=== PATIENT | male | born 1960 | race African-American/Black ===

== ENCOUNTER 2018-01-13 10:36 | Inpatient (IN) | payer MEDICARE, MEDICAID ==
[~2018-01-13] VITALS: Ht 172.7 cm; Wt 58.4 kg
[2018-01-13] MEDS ORDERED: OMEPRAZOLE40 MG PO (11:05)
[2018-01-13] MEDS ORDERED: ZOCOR40 MG PO (11:06)
[2018-01-13] MEDS ORDERED: PLAVIX75 MG PO (11:06)
[2018-01-13] MEDS ORDERED: BENAZEPRIL-HCTZ1 TA4 PO (11:07)
[2018-01-13] MEDS ORDERED: ASPIRIN EC81 M1 PO (11:07)
[2018-01-13] MEDS ORDERED: K-TAB10 MEQ PO (11:07)
[2018-01-13 11:22] VITALS: BP 83/55; BMI 19.0
[2018-01-13 12:51] LABS: BASOPHILS 0.4 % (0-2); HEMATOCRIT 31.1 % (42.0-54.0); HEMOGLOBIN 11.3 g/dL (13.5-17.5); IMMATURE GRANULOCYTES 0.2 % (0-5); LYMPHOCYTES 16.6 % (15-50); MCH 30.9 pg (26.0-34.0); MCHC 36.3 g/dL (31.0-37.0); MEAN PLATELET VOLUME 9.5 fL (7.4-10.4); NEUTROPHILS 70.8 % (40-80); PLATELET COUNT 376 10x3/uL (130-400); RBC 3.66 10x6/uL (4.20-6.10)
[2018-01-13 13:32] LABS: ALBUMIN 3.8 g/dL (3.4-5.0); ANION GAP 25.6 mmol/L (8-16); BILIRUBIN - TOTAL 0.41 mg/dL (0.2-1.3); CALCIUM 8.8 mg/dL (8.5-10.1); CARBON DIOXIDE 15.7 mmol/L (21.0-32.0); CREATININE - SERUM 11.9 mg/dL (0.6-1.3); POTASSIUM - SERUM 5.3 mmol/L (3.5-5.1); PROTEIN - SERUM 7.6 g/dL (6.4-8.2)
[2018-01-13 16:04] VITALS: BP 114/69
[2018-01-13 16:49] LABS: APPEARANCE CLEAR (CLEAR); BILIRUBIN NEGATIVE (NEGATIVE); COLOR YELLOW (YELLOW); GLUCOSE NEGATIVE (NEGATIVE); KETONE NEGATIVE (NEGATIVE); NITRITE NEGATIVE (NEGATIVE); PROTEIN NEGATIVE (NEGATIVE); UROBILINOGEN NORMAL (NORMAL)
[2018-01-13 20:44] VITALS: BP 98/67
[2018-01-14 01:11] VITALS: BP 102/65
[2018-01-14 04:57] LABS: BASOPHILS 0.6 % (0-2); EOSINOPHILS 3.7 % (0-7); HEMATOCRIT 25.1 % (42.0-54.0); IMMATURE GRANULOCYTES 0.3 % (0-5); LYMPHOCYTES 27.3 % (15-50); MCH 29.8 pg (26.0-34.0); MCHC 35.9 g/dL (31.0-37.0); MCV 83.1 fL (80.0-100.0); MEAN PLATELET VOLUME 9.2 fL (7.4-10.4); NEUTROPHILS 51.1 % (40-80); PLATELET COUNT 354 10x3/uL (130-400); RBC 3.02 10x6/uL (4.20-6.10); RDW 13.9 % (11.5-14.5); WBC 7.3 10x3/uL (4.8-10.8)
[2018-01-14 05:08] LABS: ALBUMIN 2.9 g/dL (3.4-5.0); BILIRUBIN - TOTAL 0.33 mg/dL (0.2-1.3); CALCIUM 8.4 mg/dL (8.5-10.1); PROTEIN - SERUM 6.6 g/dL (6.4-8.2)
[2018-01-14 05:12] LABS: ANION GAP 14.5 mmol/L (8-16); CARBON DIOXIDE 26.5 mmol/L (21.0-32.0)
[2018-01-14 05:46] VITALS: BP 95/59
[2018-01-14 08:26] VITALS: BP 80/74
[2018-01-14 09:10] VITALS: Ht 172.7 cm; Wt 58.4 kg
[2018-01-14 11:51] VITALS: BP 79/56
[2018-01-14 16:33] VITALS: BP 85/61
[2018-01-14 20:46] VITALS: BP 92/50
[2018-01-15 01:06] VITALS: BP 96/62
[2018-01-15 04:36] LABS: BASOPHILS 0.4 % (0-2); HEMATOCRIT 24.5 % (42.0-54.0); HEMOGLOBIN 8.7 g/dL (13.5-17.5); IMMATURE GRANULOCYTES 0.2 % (0-5); MCH 29.8 pg (26.0-34.0); MCHC 35.5 g/dL (31.0-37.0); MCV 83.9 fL (80.0-100.0); MEAN PLATELET VOLUME 8.8 fL (7.4-10.4); NEUTROPHILS 55.4 % (40-80); PLATELET COUNT 331 10x3/uL (130-400); RBC 2.92 10x6/uL (4.20-6.10); RDW 13.7 % (11.5-14.5); WBC 8.1 10x3/uL (4.8-10.8)
[2018-01-15 04:51] LABS: ALBUMIN 2.7 g/dL (3.4-5.0); BILIRUBIN - TOTAL 0.32 mg/dL (0.2-1.3); CALCIUM 7.8 mg/dL (8.5-10.1); PROTEIN - SERUM 6.1 g/dL (6.4-8.2)
[2018-01-15 05:33] LABS: ANION GAP 8.5 mmol/L (8-16); CARBON DIOXIDE 33.6 mmol/L (21.0-32.0); CREATININE - SERUM 3.7 mg/dL (0.6-1.3); POTASSIUM - SERUM 3.1 mmol/L (3.5-5.1)
[2018-01-15 06:10] VITALS: BP 102/55
[2018-01-15 09:12] VITALS: BP 114/67
[2018-01-15 10:49] LABS: ALBUMIN 2.7 g/dL (3.4-5.0); ANION GAP 8.4 mmol/L (8-16); BILIRUBIN - TOTAL 0.28 mg/dL (0.2-1.3); CALCIUM 7.9 mg/dL (8.5-10.1); CREATININE - SERUM 3.3 mg/dL (0.6-1.3); POTASSIUM - SERUM 3.4 mmol/L (3.5-5.1); PROTEIN - SERUM 6.1 g/dL (6.4-8.2)
[2018-01-15 12:37] VITALS: BP 92/55
[2018-01-15 17:32] VITALS: BP 91/58
[2018-01-15 20:00] VITALS: BP 104/67
[2018-01-16] VITALS: BP 105/65
[2018-01-16 04:00] VITALS: BP 117/60
[2018-01-16 05:11] LABS: BASOPHILS 0.3 % (0-2); EOSINOPHILS 2.5 % (0-7); HEMATOCRIT 25.5 % (42.0-54.0); HEMOGLOBIN 8.9 g/dL (13.5-17.5); IMMATURE GRANULOCYTES 0.2 % (0-5); LYMPHOCYTES 21.4 % (15-50); MCH 30.2 pg (26.0-34.0); MCHC 34.9 g/dL (31.0-37.0); MEAN PLATELET VOLUME 9.1 fL (7.4-10.4); MONOCYTES 9.3 % (2-11); NEUTROPHILS 66.3 % (40-80); PLATELET COUNT 360 10x3/uL (130-400); RBC 2.95 10x6/uL (4.20-6.10); RDW 13.9 % (11.5-14.5)
[2018-01-16 05:19] LABS: MCV 86.4 fL (80.0-100.0); WBC 10.7 10x3/uL (4.8-10.8)
[2018-01-16 05:23] LABS: ALBUMIN 2.9 g/dL (3.4-5.0); ANION GAP 9.1 mmol/L (8-16); BILIRUBIN - TOTAL 0.2 mg/dL (0.2-1.3); CALCIUM 7.5 mg/dL (8.5-10.1); CARBON DIOXIDE 33.2 mmol/L (21.0-32.0); POTASSIUM - SERUM 3.3 mmol/L (3.5-5.1); PROTEIN - SERUM 6.5 g/dL (6.4-8.2)
[2018-01-16 05:28] LABS: CREATININE - SERUM 2.2 mg/dL (0.6-1.3)
[2018-01-16 08:11] VITALS: BP 99/69
[2018-01-16 12:24] VITALS: BP 129/75
[2018-01-16 15:31] VITALS: BP 102/66
[2018-01-16 20:00] VITALS: BP 109/58
[2018-01-17 06:41] LABS: BASOPHILS 0.4 % (0-2); EOSINOPHILS 4.4 % (0-7); HEMATOCRIT 24.8 % (42.0-54.0); HEMOGLOBIN 8.4 g/dL (13.5-17.5); IMMATURE GRANULOCYTES 0.3 % (0-5); LYMPHOCYTES 18.8 % (15-50); MCH 29.9 pg (26.0-34.0); MCHC 33.9 g/dL (31.0-37.0); MCV 88.3 fL (80.0-100.0); MEAN PLATELET VOLUME 9.2 fL (7.4-10.4); MONOCYTES 5.3 % (2-11); NEUTROPHILS 70.8 % (40-80); PLATELET COUNT 359 10x3/uL (130-400); RBC 2.81 10x6/uL (4.20-6.10); RDW 14.3 % (11.5-14.5); WBC 11.5 10x3/uL (4.8-10.8)
[2018-01-17 06:59] LABS: ALBUMIN 2.7 g/dL (3.4-5.0); ANION GAP 13.7 mmol/L (8-16); BILIRUBIN - TOTAL 0.3 mg/dL (0.2-1.3); CARBON DIOXIDE 26.1 mmol/L (21.0-32.0); CREATININE - SERUM 1.7 mg/dL (0.6-1.3); POTASSIUM - SERUM 3.8 mmol/L (3.5-5.1); PROTEIN - SERUM 6.2 g/dL (6.4-8.2)
[2018-01-17 08:24] VITALS: BP 97/60
[2018-01-17 12:35] VITALS: BP 95/59
[2018-01-17 20:00] VITALS: BP 99/69
[2018-01-18] VITALS: BP 118/68
[2018-01-18 04:00] VITALS: BP 153/85
[2018-01-18 06:14] LABS: HEP B CORE AB TOTAL Negative (Negative); HEPATITIS C ANTIBODY <0.1 (0.0-0.9)
[2018-01-18 06:22] LABS: BASOPHILS 0.3 % (0-2); EOSINOPHILS 7.1 % (0-7); HEMATOCRIT 24.2 % (42.0-54.0); HEMOGLOBIN 8.3 g/dL (13.5-17.5); IMMATURE GRANULOCYTES 0.3 % (0-5); LYMPHOCYTES 18.1 % (15-50); MCH 30.3 pg (26.0-34.0); MCHC 34.3 g/dL (31.0-37.0); MCV 88.3 fL (80.0-100.0); MEAN PLATELET VOLUME 9.1 fL (7.4-10.4); MONOCYTES 5.1 % (2-11); NEUTROPHILS 69.1 % (40-80); PLATELET COUNT 374 10x3/uL (130-400); RBC 2.74 10x6/uL (4.20-6.10); RDW 14.6 % (11.5-14.5); WBC 12.1 10x3/uL (4.8-10.8)
[2018-01-18 06:50] LABS: ALBUMIN 2.6 g/dL (3.4-5.0); ANION GAP 14.9 mmol/L (8-16); BILIRUBIN - TOTAL 0.11 mg/dL (0.2-1.3); CALCIUM 7.1 mg/dL (8.5-10.1); CARBON DIOXIDE 23.8 mmol/L (21.0-32.0); CREATININE - SERUM 1.5 mg/dL (0.6-1.3); POTASSIUM - SERUM 3.7 mmol/L (3.5-5.1)
[2018-01-18 08:40] VITALS: BP 108/69
[2018-01-18 12:48] VITALS: BP 123/78
[2018-01-18 14:33] LABS: % SATURATION 8 % (15-55); IRON 15 ug/dl (35-150); TOTAL IRON BIND CAPACITY 185 ug/dl (260-445); UNSAT IRON BIND CAPACITY 170 ug/dl (150-375)
[2018-01-18 16:15] VITALS: BP 128/71
[2018-01-18 20:04] VITALS: BP 116/65
[2018-01-19 00:37] VITALS: BP 115/67
[2018-01-19 06:06] LABS: ALBUMIN 2.5 g/dL (3.4-5.0); ANION GAP 15.5 mmol/L (8-16); BILIRUBIN - TOTAL 0.11 mg/dL (0.2-1.3); CALCIUM 7.3 mg/dL (8.5-10.1); CARBON DIOXIDE 24.2 mmol/L (21.0-32.0); CREATININE - SERUM 1.4 mg/dL (0.6-1.3); POTASSIUM - SERUM 3.7 mmol/L (3.5-5.1); PROTEIN - SERUM 6.3 g/dL (6.4-8.2)
[2018-01-19 06:20] LABS: BASOPHILS 0.3 % (0-2); EOSINOPHILS 7.7 % (0-7); HEMATOCRIT 24.1 % (42.0-54.0); HEMOGLOBIN 8.2 g/dL (13.5-17.5); IMMATURE GRANULOCYTES 0.3 % (0-5); LYMPHOCYTES 16.2 % (15-50); MCH 29.8 pg (26.0-34.0); MCV 87.6 fL (80.0-100.0); MEAN PLATELET VOLUME 9.3 fL (7.4-10.4); MONOCYTES 5.5 % (2-11); PLATELET COUNT 429 10x3/uL (130-400); RBC 2.75 10x6/uL (4.20-6.10); RDW 14.5 % (11.5-14.5); WBC 11.9 10x3/uL (4.8-10.8)
[2018-01-19 06:21] VITALS: BP 139/76
[2018-01-19 07:30] LABS: FOLATE (FOLIC ACID) - SERUM 11.6 ng/mL (>3.0)
[2018-01-19 08:50] VITALS: BP 95/60
[2018-01-19 12:03] VITALS: BP 91/52
[2018-01-19] MEDS ORDERED: FLORAJEN3 CAPS460 MG PO (13:28)
[2018-01-19] MEDS ORDERED: FLAGYL500 MG PO (13:31)
[2018-01-19] MEDS ORDERED: CREON DR 6,0001 EACH PO (13:31)
== END 2018-01-19 14:46 | disposition home or self-care (01) | DRG 438 ==
LOC: D.M2 10:36 → D.SDCHOLD 10:36 → D.M2 10:40
PROVIDERS: Family Medicine; Internal Medicine Nephrology
DX: K85.90 Acute pancreatitis without necrosis or infection, unspecified (principal); N17.0 Acute kidney failure with tubular necrosis; N18.6 End stage renal disease; I12.0 Hypertensive chronic kidney disease with stage 5 chronic kidney disease or end stage renal disease; F17.203 Nicotine dependence unspecified, with withdrawal; A04.72 Enterocolitis due to Clostridium difficile, not specified as recurrent; N13.30 Unspecified hydronephrosis; E78.5 Hyperlipidemia, unspecified; Z72.89 Other problems related to lifestyle; K21.9 Gastro-esophageal reflux disease without esophagitis; I95.9 Hypotension, unspecified; I71.4 Abdominal aortic aneurysm, without rupture

== ENCOUNTER → 2018-07-25 12:13 | Outpatient (CLI) | payer MEDICARE, MEDICAID ==
[2018-01-14 09:10] VITALS: BMI 19.0
[~2018-07-25 12:13] MED LIST: ASPIRIN EC81 M1 PO; BENAZEPRIL-HCTZ1 TA4 PO; CREON DR 6,0001 EACH PO; FLAGYL500 MG PO; FLORAJEN3 CAPS460 MG PO; K-TAB10 MEQ PO; OMEPRAZOLE40 MG PO; PLAVIX75 MG PO; ZOCOR40 MG PO
== END | disposition home or self-care (01) ==
LOC: D.NM 12:13
DX: R10.11 Right upper quadrant pain (principal)

== ENCOUNTER 2019-09-09 09:21 | Emergency (ER) | payer MEDICARE, MEDICAID ==
[~2019-09-09] VITALS: Ht 172.7 cm; Wt 62.7 kg
[2019-09-09 09:25] VITALS: Ht 172.7 cm; Wt 62.7 kg
[2019-09-09] MEDS ORDERED: PREDNISONE20 MG PO (11:08)
[2019-09-09 11:16] VITALS: BP 200/89
== END 2019-09-09 11:16 | disposition home or self-care (01) ==
LOC: D.ER 09:21
DX: T14.8XXA Other injury of unspecified body region, initial encounter (principal); I20.9 Angina pectoris, unspecified; Z72.0 Tobacco use

== ENCOUNTER 2019-11-13 17:05 | Inpatient (IN) | payer MEDICARE, MEDICAID ==
[~2019-11-13] VITALS: Ht 172.7 cm; Wt 54.5 kg
[2019-11-13] VITALS (8 sets, daily range): BP systolic 75–111; BP diastolic 46–68; BMI 18.3
[~2019-11-13 17:05] MED LIST changes: +PREDNISONE20 MG PO
[2019-11-13] MEDS ORDERED: LOZOL1.25 MG PO (17:26)
[2019-11-13] MEDS ORDERED: LOTENSIN40 MG PO (17:26)
[2019-11-13] MEDS ORDERED: VITAMIN B-12500 MCG PO (17:27)
[2019-11-13] MEDS ORDERED: PREVACID30 MG (17:27)
[2019-11-13] MEDS ORDERED: ZOCOR40 MG PO (17:27)
[2019-11-13] MEDS ORDERED: FERROUS SULFAT325 MG PO (17:28)
[2019-11-13 17:59] LABS: HEMATOCRIT 31.2 % (42.0-54.0); HEMOGLOBIN 10.7 g/dL (13.5-17.5); LYMPHOCYTES 24.1 % (15-50); MCH 32.3 pg (26.0-34.0); MCHC 34.3 g/dL (31.0-37.0); MCV 94.3 fL (80.0-100.0); MEAN PLATELET VOLUME 9.2 fL (7.4-10.4); NEUTROPHILS 66.9 % (40-80); RBC 3.31 10x6/uL (4.20-6.10); RDW 13.9 % (11.5-14.5); WBC 7.7 10x3/uL (4.8-10.8)
[2019-11-13 18:09] LABS: PLATELET COUNT 328 10x3/uL (130-400)
[2019-11-13 18:16] LABS: CALC OSMOLALITY 295 mosm/kg (275-300); CALCIUM 9.7 mg/dL (8.5-10.1); CARBON DIOXIDE 17.9 mmol/L (21.0-32.0); CHLORIDE - SERUM 92 mmol/L (98-107); CREATININE - SERUM 9.3 mg/dL (0.6-1.3); GLUCOSE 95 mg/dL (74-106); POTASSIUM - SERUM 5.6 mmol/L (3.5-5.1); SODIUM 131 mmol/L (136-145); UREA NITROGEN 104 mg/dL (7-18); eGFR NON AFRICAN AMERICAN 6 mL/min (90-120)
--- NOTE | 2019-11-13 18:30 | NUR ---
PT PLACED IN [place] DUE TO LOW BP. BP IS 85/55. PROVIDER INFORMED.
[2019-11-13 18:39] LABS: ALBUMIN 4.7 g/dL (3.4-5.0); ALKALINE PHOSPHATASE 82 U/L (30-120); ALT (SGPT) 36 U/L (10-68); BILIRUBIN - TOTAL 0.33 mg/dL (0.2-1.3); C-REACTIVE PROTEIN 0.9 mg/dL (0.0-0.9); CKMB 6.2 U/L (0.0-3.6); CREATINE KINASE 486 UL (21-232); PROTEIN - SERUM 8.4 g/dL (6.4-8.2)
[2019-11-13 18:43] LABS: TROPONIN-I 0.135 ng/mL (0.000-0.060)
[2019-11-13 19:03] LABS: INR 0.86 (0.85-1.17); PROTIME 11.7 SECONDS (11.6-15.0)
--- NOTE | 2019-11-13 19:15 | NUR ---
STOOL GUIAC GROSSLY POSITIVE. PROVIDER BHARTI COSME.
--- NOTE | 2019-11-13 19:18 | NUR ---
REPORT GIVEN TO ASHLEY YANEZ USING SBAR
[2019-11-13 19:24] LABS: AMYLASE - SERUM 45 U/L (25-115); LIPASE 93 U/L (73-393)
--- NOTE | 2019-11-13 19:35 | NUR ---
COMPLAINS OF 3 PAIN TO BACK "KIDNEYS". PATIENT IN [facility]. BP 93/63. HR 76. NO DISTRESS NOTED. BLOOD CONSENT SIGNED
--- NOTE | 2019-11-13 20:35 | NUR ---
20G LEFT AC D/C AT THIS TIME, IV DID NOT FLUSH. CATHETER INTACT, DRESSING PLACED
[2019-11-13 20:53] LABS: HEMATOCRIT 27.5 % (42.0-54.0); HEMOGLOBIN 9.4 g/dL (13.5-17.5)
[2019-11-13 21:09] LABS: ANION GAP 19.3 mmol/L (8-16); CALCIUM 8.5 mg/dL (8.5-10.1); CARBON DIOXIDE 20.9 mmol/L (21.0-32.0); CREATININE - SERUM 8.8 mg/dL (0.6-1.3); POTASSIUM - SERUM 5.2 mmol/L (3.5-5.1)
--- NOTE | 2019-11-13 21:12 | NUR ---
PT RECEIVED TO UNIT FROM ER AT 2039. VITAL SIGNS STABLE. PT TO CT WITH RN, AND RETURNED TO UNIT. PT ALERT AND ORIENTED. DENIES PAIN. NO S/S OF DISTRESS NOTED AT THIS TIME. ABLE TO TRANSFER SELF FROM STRETCHER TO BED AND FROM BED TO CT TABLE AND BACK TO BED WITHOUT DIFFICULTY. WILL CONTINUE TO OBSERVE.
[2019-11-13 21:38] LABS: CREATINE KINASE 418 UL (21-232)
[2019-11-13 21:41] LABS: TROPONIN-I 0.231 ng/mL (0.000-0.060)
--- NOTE | 2019-11-13 23:39 | NUR ---
PT WITH EYES OPEN WATCHING TV. NEW IV TO RIGHT AC STARTED ATTEMPS X2. MOUTH SWABS AND BLANKET PROVIDED. THERMOSTAT ADJUSTED FOR PT COMFORT. CALL LIGHT IN REACH. WILL CONTINUE TO OBSERVE.
[2019-11-14] VITALS (15 sets, daily range): BP systolic 79–119; BP diastolic 49–75; Ht 172.7 cm; Wt 54.5 kg
[2019-11-14 01:09] LABS: HEMATOCRIT 32.2 % (42.0-54.0)
--- NOTE | 2019-11-14 01:31 | NUR ---
PT RESTING WITH EYES CLOSED AND CHEST RISING. NO S/S OF DISTRESS NOTED AT THIS TIME. CALL LIGHT IN REACH. WILL CONTINUE TO OBSERVE. CONTINUES DROPLET PRECAUTIONS.
[2019-11-14 03:59] LABS: HEMATOCRIT 34.4 % (42.0-54.0); HEMOGLOBIN 11.6 g/dL (13.5-17.5); LYMPHOCYTES 19.4 % (15-50); MCH 30.7 pg (26.0-34.0); MCHC 33.7 g/dL (31.0-37.0); MEAN PLATELET VOLUME 9.2 fL (7.4-10.4); NEUTROPHILS 72.6 % (40-80); RBC 3.78 10x6/uL (4.20-6.10)
[2019-11-14 04:08] LABS: APTT 31.4 SECONDS (22.8-39.4); INR 0.93 (0.85-1.17); PROTIME 12.4 SECONDS (11.6-15.0)
[2019-11-14 04:13] LABS: CKMB 4.9 U/L (0.0-3.6); CREATINE KINASE 377 UL (21-232)
[2019-11-14 04:17] LABS: ALBUMIN 3.8 g/dL (3.4-5.0); ANION GAP 20.1 mmol/L (8-16); BILIRUBIN - TOTAL 0.44 mg/dL (0.2-1.3); CALCIUM 8.2 mg/dL (8.5-10.1); CARBON DIOXIDE 19.6 mmol/L (21.0-32.0); CREATININE - SERUM 7.5 mg/dL (0.6-1.3); PHOSPHOROUS 3.8 mg/dL (2.5-4.9); POTASSIUM - SERUM 4.7 mmol/L (3.5-5.1); PROTEIN - SERUM 7.1 g/dL (6.4-8.2)
[2019-11-14 04:24] LABS: PLATELET COUNT 243 10x3/uL (130-400); TROPONIN-I 0.799 ng/mL (0.000-0.060); WBC 9.7 10x3/uL (4.8-10.8)
[2019-11-14 07:03] LABS: BILIRUBIN NEGATIVE (NEGATIVE); GLUCOSE 50 mg/dL (NEGATIVE); KETONE NEGATIVE (NEGATIVE); NITRITE NEGATIVE (NEGATIVE); UROBILINOGEN NORMAL (NORMAL)
[2019-11-14 07:06] LABS: BACTERIA FEW /hpf (NEGATIVE); EPITHELIAL CELLS OCC /hpf (0-5); RED CELLS - URINE OCC /hpf (0-5); WHITE CELLS - URINE RARE /hpf (NEGATIVE)
--- NOTE | 2019-11-14 07:38 | NUR ---
egd at bedside during this time
--- NOTE | 2019-11-14 08:28 | NUR ---
0759 EGD DONE AT BEDSIDE IN ICU. ALL PPE USED DUE TO DROPLET ISOLATION PRECAUTIONS. TOLERATED WELL. REPORT TO MARGO Calvert RN.
[2019-11-14 08:56] LABS: CKMB 4.5 U/L (0.0-3.6); CREATINE KINASE 396 UL (21-232)
[2019-11-14 08:58] LABS: TROPONIN-I 1.048 ng/mL (0.000-0.060)
--- NOTE | 2019-11-14 09:00 | NUR ---
new orders for cardiology consult dr winkler called about elevated troponin
--- NOTE | 2019-11-14 09:02 | NUR ---
PAGED DR APPLE
--- NOTE | 2019-11-14 09:03 | NUR ---
AMI BOWDEN PAGED BACK
--- NOTE | 2019-11-14 09:22 | NUR ---
ok'd with dr mercedes and voise to transfer
[2019-11-14 13:36] LABS: HEMATOCRIT 33.7 % (42.0-54.0); HEMOGLOBIN 11.5 g/dL (13.5-17.5)
--- NOTE | 2019-11-14 17:50 | MORECARE ---
CASE MANAGEMENT DISCHARGE SUMMARY PATIENT: ANITA ELY UNIT: [id number] ADM DATE: 11/13/19 AGE: 59 : 58 SEX: M ROOM/BED: D.2311 AUTHOR: MAGDA RODRIGUEZ PHYSICIAN: REFERRING PHYSICIAN: FREDY ADAMS MD DATE OF SERVICE: 11/14/19 Discharge Plan Patient Name: ANITA ELY [facility] [facility] 1960 Planned Disposition: Home Anticipated Discharge Date: Discharge Date: Expected LOS: Initial Reviewer: [email or web address] Initial Review Date: 11/13/2019 Generated: 11/14/19 6:49 pm Patient Name: ANITA ELY Page [phone] at 1750 All edits/amendments must be made on the electronic document DICTATION DATE: 11/14/191748 VENTILATING EQUIPMENT INSTALLER: ANDREI 11/14/191748 RPT#: [id number] DC DATE: STATUS: ADM IN [facility] [address] [place] [address] END OF REPORT
[2019-11-14 17:56] LABS: HEMATOCRIT 36.2 % (42.0-54.0); HEMOGLOBIN 12.4 g/dL (13.5-17.5)
--- NOTE | 2019-11-14 17:56 | MORECARE ---
CASE MANAGEMENT DISCHARGE SUMMARY PATIENT: ANITA ELY UNIT: [id number] ADM DATE: 11/13/19 AGE: 59 : 58 SEX: M ROOM/BED: D.2311 AUTHOR: MICHAELDOC PHYSICIAN: REFERRING PHYSICIAN: FREDY ADAMS MD DATE OF SERVICE: 11/14/19 Discharge Plan Patient Name: ANITA ELY [facility] [facility] 1960 Planned Disposition: Home Anticipated Discharge Date: Discharge Date: Expected LOS: Initial Reviewer: [email or web address] Initial Review Date: 11/13/2019 Generated: 11/14/19 6:56 pm Comments DCP- Discharge Planning Updated by [email or web address]: Janye Lucero on 11/14/19 4:[address] Patient Name: ANITA ELY Admission Status: ER Accout number: [id number] Admission Date: 11-13-2019 : 1960 Admission Diagnosis: Attending: FREDY ADAMS Current LOS: 1 Anticipated DC Date: Planned Disposition: Home Primary Insurance: [facility] MEDICARE SOLUTIONS Discharge Planning Comments: CM met with patient to complete initial dc planning assessment. CM educated patient on the CM role and verbal consent given by patient to complete assessment. Patient lives at home alone. At discharge patient plans to return home and feels this is a safe discharge. CM discussed availability of home health, rehab services, and medical equipment. Patient denied known discharge needs at this time. CM will continue to follow and will assist as needed with dc plans/needs. Riverboat Master: Jayne Lucero DCPIA - Discharge Planning Initial Assessment Updated by [email or web address]: Jayne Lucero on 11/14/19 5:53 pm * Is the patient Alert and Oriented? Yes * How many steps to enter\exit or inside your home? * PCP ALEJANDRA * [facility] * Preadmission Environment Home Alone * ADLs Independent * Equipment None * List name and contact numbers for known caregivers / representatives who currently or will assist patient after discharge: RIYA [facility]OS [facility] - [phone] * Verbal permission to speak to the caregivers and representatives has been obtained from the patient. Yes * Community resources currently utilized None * Additional services required to return to the preadmission environment? No * Can the patient safely return to the preadmission environment? Yes * Has this patient been hospitalized within the prior 30 days at any hospital? No Last DP export: 11/14/19 4:50 p Patient Name: ANITA ELY Page [phone] at 1756 All edits/amendments must be made on the electronic document DICTATION DATE: 11/14/191755 LANDING GEAR MECHANIC: ANDREI 11/14/191755 RPT#: [id number] DC DATE: STATUS: ADM IN [facility] [address] [place] [address] END OF REPORT
--- NOTE | 2019-11-14 19:00 | NUR ---
Report received from off going nurse. Pt is sitting up in bed watching tv at this time. No needs voiced. Shift assessment completed, see flowsheet for details. No s/s of distress noted. Will continue to monitor.
--- NOTE | 2019-11-14 21:00 | NUR ---
Pt is laying in bed watching tv. No needs voiced at this time. No s/s of distress. Will continue to monitor.
--- NOTE | 2019-11-14 23:00 | NUR ---
Pt is laying in bed watching tv. No needs voiced at this time. No s/s of distress. Will continue to monitor.
--- NOTE | 2019-11-15 01:00 | NUR ---
Pt is laying in bed with eyes closed. No needs voiced at this time. No s/s of distress. Will continue to monitor.
[2019-11-15 01:11] LABS: HEMATOCRIT 29.8 % (42.0-54.0)
[2019-11-15 02:34] LABS: ALBUMIN 3.1 g/dL (3.4-5.0); ANION GAP 12.1 mmol/L (8-16); BILIRUBIN - TOTAL 0.26 mg/dL (0.2-1.3); CALCIUM 7.7 mg/dL (8.5-10.1); CARBON DIOXIDE 22.9 mmol/L (21.0-32.0); PHOSPHOROUS 3.7 mg/dL (2.5-4.9); PROTEIN - SERUM 6.4 g/dL (6.4-8.2)
[2019-11-15 02:35] LABS: CREATININE - SERUM 4.2 mg/dL (0.6-1.3); MAGNESIUM - SERUM 2.9 mg/dL (1.8-2.4)
[2019-11-15 03:00] VITALS: BP 90/60
--- NOTE | 2019-11-15 03:00 | NUR ---
Pt is resting in bed with eyes closed at this time. No needs voiced. No s/s of distress. Will continue to monitor.
--- NOTE | 2019-11-15 05:00 | NUR ---
Pt is resting in bed with eyes closed. No needs voiced. No s/s of distress. Will continue to monitor.
[2019-11-15 07:00] VITALS: BP 110/70
--- NOTE | 2019-11-15 10:17 | NUR ---
patient concerned about regular home meds. discussed with dr winkler
[2019-11-15 11:00] VITALS: BP 112/72
--- NOTE | 2019-11-15 11:53 | CN ---
PATIENT NAME:ANITA ELY MEDICAL RECORD: [id number] : 58 LOCATION:[id number] ADMIT DATE: 11/13/19 ACCOUNT: [id number] CONSULTING PHYSICIAN: GWENDOLYN MCNAMARA MD REFERRING PHYSICIAN: FREDY ADAMS MD DATE OF CONSULTATION: 11/14/2019 HISTORY OF PRESENT ILLNESS: A 59-year-old gentleman with a known history of coronary artery disease, status post intervention, has a history of hypertension, hyperlipidemia, became acutely ill Tuesday with cough, nausea, vomiting, fatigue, subjective fever, presented to the ER, was found to have gastritis with EGD. He had increase in troponin from 0.23 to 1.0. Difficult to fully interpret in lieu of elevated creatinine; however, certainly could be consistent with demand ischemic type 2 AL with supply demand mismatch. We are asked to see him concerning his cardiovascular status. PAST MEDICAL HISTORY: Includes; 1. History of coronary artery disease. 2. Hypertension. 3. Hyperlipidemia. ALLERGIES: None known. CHRONIC MEDICATIONS: Include Plavix 75 every day, Lotensin 40 mg p.o. every day, simvastatin 40 every day, Lozol 1.25 every day. SOCIAL HISTORY: Smokes about a pack a day, drinks at least 40 to 80 ounces of alcohol daily. Occasional marijuana use. Easily takes care of all his ADLs, does try to walk on a semi-regular basis. REVIEW OF SYSTEMS: The patient reports easy bruising but reports no swollen glands. The patient reports no fever, no night sweats, no significant weight gain, no significant weight loss. No significant exercise tolerance. The patient reports no dry eyes, no irritation, no vision change. Patient reports no difficulty hearing and no ear pain. Patient reports no frequent nose bleeds or nose and sinus problems. Patient reports on arm pain on exertion. No shortness of breath while lying down. No history of heart murmur. Patient reports no cough, no wheezing or coughing up blood. Patient reports no abdominal pain, no vomiting. Normal appetite. No diarrhea and not vomiting blood. No nausea and no constipation. Patient reports no incontinence. No difficulty urinating. No hematuria. No increased frequency. Patient reports no muscle aches. No weakness, no arthralgias, no back pain. No swelling of the extremities. Patient reports no abnormal mole, no jaundice, no rashes. Reports no loss of consciousness. No weakness and no numbness. No seizures, dizziness, or headaches. The patient reports no depression, no sleep disturbance, feeling safe in a relationship and no alcohol abuse. Patient reports on fatigue. Reports no runny nose or sinus pressure. No itching, no hives, and no frequent sneezing. PHYSICAL EXAMINATION: GENERAL: Well-developed, well-nourished, appears stated age, in no acute distress. VITAL SIGNS: Blood pressure 92/49, pulse 70 and regular. HEENT: Normocephalic, atraumatic. NECK: No bruits are noted. CONSULT REPORT [id number] ANITA ELY HEART: Regular, II/ systolic ejection murmur. I do not hear a gallop. LUNGS: Actually, good air excursion. ABDOMEN: Soft, nontender. Bowel sounds appear a little bit hyperactive. EXTREMITIES: Pulses are well preserved, 2+, with no edema. NEUROLOGIC: He was intact. DIAGNOSTIC DATA: ECG shows anterior ST-T segment changes. IMPRESSION AND PLAN: Again certainly could be a type 2 myocardial infarction with a supply demand mismatch. We will check echocardiographic study, check focal wall motion as well as left ventricular function to see how aggressive we can be with fluid resuscitation at this point. Further recommendation based on clinical course. TRANSINT:[id number] Voice Confirmation ID: [id number] DOCUMENT ID: [id number] GWENDOLYN MCNAMARA MD at 1153 CC: [id number] DICTATION DATE: 11/14/19 0934 GLASS PROCESSING WORKER: 11/14/19 1007 ADM IN [place] [id number] [place] [address]
--- NOTE | 2019-11-15 11:53 | EC ---
PATIENT:ANITA ELY DATE OF SERVICE: 11/13/19 SEX: M MEDICAL RECORD: [id number] DATE OF : 58 LOCATION:[place] [address] AGE OF PATIENT: 59 ADMISSION DATE: 11/13/19 REFERRING PHYSICIAN: INTERPRETING PHYSICIAN: GWENDOLYN MCNAMARA MD ECHOCARDIOGRAM REPORT ECHO CHARGES 4 ECHO COMPLETE Date: 11/14/19 CLINICAL DIAGNOSIS: CAD, HYPERTENSION ECHOCARDIOGRAPHIC MEASUREMENTS (adult normal given) AC root (d.<3.7cm) 3.0 cm LV Septum d (<1.2 cm> 0.6 cm Valve Excursion 1.6 cm LV Septum (systole) 1.1 cm Left Atria (s.<4.0cm> 3.1 cm LVPW d(<1.2cm) 0.8 cm RV (d.<2.3cm) 2.4 cm LVPW (sytole) 0.9 cm LV diastole(<5.6CM) 5.3 cm MV E-F(>70mm/sec) cm LV systole 3.6 cm LVOT Diameter 1.9 cm MV exc.(>10mm) cm Est.ejection fraction (50-75%) % DOPPLER: LVIT cm/sec A 66 cm/sec E 94 cm/sec LA cm/sec RVSP 21.2 mmHg LVOT 118 cm/sec AOP1/2T m/s Asc. Ao 146 cm/sec RVOT 56 cm/sec RA cm/sec PA 68 cm/sec AV Gradient Peak 8.5 mmHg AV Mean 3.3 mmHg AV Area 2.1 cm MV Gradient Peak 4.7 mmHg MV Mean 2.1 mmHg MV Area cm COMMENTS: Driver Merchandiser: Pacheco [facility] Food Service: 3 Dr. Damon TAPE# PACS Pericardial Effusion N DATE OF SERVICE: Adequate 2D, color flow imaging, spectral Doppler, and M-Mode. No LVH. LV internal dimension is normal. Wall motion is normal. EF is greater than or equal to 55%. Aortic valve is tricuspid. No evidence of stenosis by Doppler interrogation. Left atrium is normal at 3.1 cm. Mitral valve shows no prolapse. Trace MR. Right-sided chambers are grossly normal. Trace TR. TRANSINT:[id number] Voice Confirmation ID: [id number] DOCUMENT ID: [id number] ECHOCARDIOGRAM REPORT [id number] ANITA ELY GWENDOLYN MCNAMARA MD at 1153 CC: [id number] DICTATION DATE: 11/14/19 124 ADVERTISING SPECIALIST: 11/14/19 1249 ADM IN [place] [id number] [place] [id number]
[2019-11-15 15:00] VITALS: BP 136/78
--- NOTE | 2019-11-15 18:27 | NUR ---
gave report to hayden
[2019-11-15 20:00] VITALS: BP 140/64
[2019-11-16 04:00] VITALS: BP 127/51
[2019-11-16 05:27] LABS: BASOPHILS 0.3 % (0-2); EOSINOPHILS 4.6 % (0-7); HEMATOCRIT 26.8 % (42.0-54.0); HEMOGLOBIN 9.1 g/dL (13.5-17.5); IMMATURE GRANULOCYTES 0.2 % (0-5); LYMPHOCYTES 18.3 % (15-50); MCH 30.6 pg (26.0-34.0); MCV 90.2 fL (80.0-100.0); MEAN PLATELET VOLUME 9.4 fL (7.4-10.4); MONOCYTES 8.2 % (2-11); NEUTROPHILS 68.4 % (40-80); PLATELET COUNT 198 10x3/uL (130-400); RBC 2.97 10x6/uL (4.20-6.10); RDW 13.7 % (11.5-14.5); WBC 8.9 10x3/uL (4.8-10.8)
[2019-11-16 05:42] LABS: ALBUMIN 2.9 g/dL (3.4-5.0); ANION GAP 15.6 mmol/L (8-16); BILIRUBIN - TOTAL 0.13 mg/dL (0.2-1.3); CALCIUM 8.1 mg/dL (8.5-10.1); CARBON DIOXIDE 20.5 mmol/L (21.0-32.0); MAGNESIUM - SERUM 2.4 mg/dL (1.8-2.4); PHOSPHOROUS 3.4 mg/dL (2.5-4.9); PROTEIN - SERUM 6.1 g/dL (6.4-8.2)
[2019-11-16 05:43] LABS: CREATININE - SERUM 2.7 mg/dL (0.6-1.3); POTASSIUM - SERUM 4.1 mmol/L (3.5-5.1)
--- NOTE | 2019-11-16 07:33 | NUR ---
PT SITTING UP IN BED. RESP EVEN AND UNLABORED. PT ALERT AND ORIENTED X 4. PT DENIES PAIN AT THIS TIME. REPORTS "I AM FEELING A LOT BETTER TODAY AND HOPE TO GET TO GO HOME." IV TO RIGHT HAND WITH MULTIVITAMIN FLUIDS AT 125ML/HR INFUSING VIA PUMP. SITE WITHOUT REDNESS OR EDEMA. PT DENIES FURTHER NEEDS AT THIS TIME. CL WITHIN REACH. ENCOURAGED TO CALL WITH NEEDS. CONTINUE POC
[2019-11-16] MEDS ORDERED: CARAFATE1 G PO (09:19)
[2019-11-16] MEDS ORDERED: PROTONIX40 MG PO (09:19)
[2019-11-16 09:29] VITALS: BP 136/57
--- NOTE | 2019-11-16 10:34 | NUR ---
PT BEING DISCHARGED HOME. DISCHARGE INFORMATION PROVIDED TO PT. DISCUSSED S/S TO MONITOR FOR, INCREASED BLEEDING, WEAKNESS OR DIZZINESS. EDUCATED PT REGARDING MEDICATIONS PRESCRIBED AND NEED TO BE PICKED UP FROM PHARMACY. PT VOICES UNDERSTANDING. DISCUSSED FOLLOW UP APPOINTMENT WITH DR. ROBERTS IN ONE WEEK. PT VOICES UNDERSTANDING. IV DC'D FROM RIGHT HAND, CATH INTACT. PT TAKEN OUT FOR DISCHARGE WITH ALL PERSONAL BELONGINGS.
--- NOTE | 2019-11-16 20:34 | MORECARE ---
CASE MANAGEMENT DISCHARGE SUMMARY PATIENT: ANITA ELY UNIT: [id number] ADM DATE: 11/13/19 AGE: 59 : 58 SEX: M ROOM/BED: D.2235 AUTHOR: MICHAELDOC PHYSICIAN: REFERRING PHYSICIAN: FREDY ADAMS MD DATE OF SERVICE: 11/16/19 Discharge Plan Patient Name: ANITA ELY [facility] [facility] 1960 Planned Disposition: Home Anticipated Discharge Date: Discharge Date: 11/16/2019 Expected LOS: Initial Reviewer: [email or web address] Initial Review Date: 11/13/2019 Generated: 11/16/19 9:34 pm Comments DCP- Discharge Planning Updated by [email or web address]: Jayne Lucero on 11/14/19 4:[address] Patient Name: ANITA ELY Admission Status: ER Accout number: [id number] Admission Date: 11-13-2019 : 1960 Admission Diagnosis: Attending: FREDY ADAMS Current LOS: 1 Anticipated DC Date: Planned Disposition: Home Primary Insurance: [facility] MEDICARE SOLUTIONS Discharge Planning Comments: CM met with patient to complete initial dc planning assessment. CM educated patient on the CM role and verbal consent given by patient to complete assessment. Patient lives at home alone. At discharge patient plans to return home and feels this is a safe discharge. CM discussed availability of home health, rehab services, and medical equipment. Patient denied known discharge needs at this time. CM will continue to follow and will assist as needed with dc plans/needs. Straw Hat Machine Operator: Jayne Lucero DCPIA - Discharge Planning Initial Assessment Updated by [email or web address]: Jayne Lucero on 11/14/19 5:53 pm * Is the patient Alert and Oriented? Yes * How many steps to enter\exit or inside your home? * PCP ALEJANDRA * [facility] * Preadmission Environment Home Alone * ADLs Independent * Equipment None * List name and contact numbers for known caregivers / representatives who currently or will assist patient after discharge: RIYA AVALOS [facility] - [phone] * Verbal permission to speak to the caregivers and representatives has been obtained from the patient. Yes * Community resources currently utilized None * Additional services required to return to the preadmission environment? No * Can the patient safely return to the preadmission environment? Yes * Has this patient been hospitalized within the prior 30 days at any hospital? No Coverage Notice Reviewer: [id number] Emy Lucero Notice Issued Date-Time: 11/15/2019 13:30 Notice Type: IM Discharge Notice Notice Delivered To: Patient Relationship to Patient: Self Sketch Artist Name: Delivery Method: - Lillie Days: Prior Verbal Notification: Recipient Understood Notice: Recipient Signature: Med Rec Note Co-signed by Attending: Coverage Notice Comment: Last DP export: 11/14/19 4:56 p Patient Name: ANITA ELY Page 26781 at 2033 All edits/amendments must be made on the electronic document DICTATION DATE: 11/16/192033 TON CYLINDER INSPECTOR: ANDREI 11/16/192033 RPT#: [id number] DC DATE:11/16/19 STATUS: DIS IN [facility] [address] [place] [address] END OF REPORT
== END 2019-11-16 10:49 | disposition home or self-care (01) | DRG 377 ==
LOC: D.ER 17:05 → D.ICU 19:24 → D.MS 11-15 18:37
PROVIDERS: Family Medicine; Internal Medicine Gastroenterology; ADMIT Internal Medicine Nephrology; ATTEND Internal Medicine Nephrology
PROC: 0DD68ZX Extraction of Stomach, Via Natural or Artificial Opening Endoscopic, Diagnostic (ICD-10-PCS; principal; 2019-11-14 07:30)
DX: K29.01 Acute gastritis with bleeding (principal); N17.0 Acute kidney failure with tubular necrosis; I21.A1 Myocardial infarction type 2; F17.213 Nicotine dependence, cigarettes, with withdrawal; K21.0 Gastro-esophageal reflux disease with esophagitis; E78.5 Hyperlipidemia, unspecified; F19.10 Other psychoactive substance abuse, uncomplicated; I95.9 Hypotension, unspecified; K29.81 Duodenitis with bleeding; K22.2 Esophageal obstruction; K44.9 Diaphragmatic hernia without obstruction or gangrene; F10.10 Alcohol abuse, uncomplicated; I10 Essential (primary) hypertension; D64.9 Anemia, unspecified

== ENCOUNTER 2020-11-10 12:21 | Emergency (ER) | payer MEDICARE, MEDICAID ==
[~2020-11-10] VITALS: Ht 172.7 cm; Wt 59.5 kg
[~2020-11-10 12:21] MED LIST changes: +CARAFATE1 G PO; +FERROUS SULFAT325 MG PO; +LOTENSIN40 MG PO; +LOZOL1.25 MG PO; +PREVACID30 MG; +PROTONIX40 MG PO; +VITAMIN B-12500 MCG PO
[2020-11-10 12:24] VITALS: Ht 172.7 cm; Wt 59.5 kg
[2020-11-10 13:51] LABS: BASOPHILS 0.3 % (0-2); EOSINOPHILS 3.7 % (0-7); HEMATOCRIT 32.3 % (42.0-54.0); HEMOGLOBIN 11.2 g/dL (13.5-17.5); IMMATURE GRANULOCYTES 0.2 % (0-5); LYMPHOCYTE ABS# 1.68 10x3/uL (1.32-3.57); LYMPHOCYTES 25.6 % (15-50); MCH 32.1 pg (26.0-34.0); MCHC 34.7 g/dL (31.0-37.0); MCV 92.6 fL (80.0-100.0); MEAN PLATELET VOLUME 8.7 fL (7.4-10.4); NEUTROPHIL ABS# 4.16 10x3/uL (1.78-5.38); NEUTROPHILS 63.2 % (40-80); PLATELET COUNT 317 10x3/uL (130-400); RBC 3.49 10x6/uL (4.20-6.10); RDW 13.7 % (11.5-14.5); WBC 6.6 10x3/uL (4.8-10.8)
[2020-11-10 13:56] LABS: ANION GAP 17.5 mmol/L (8-16); CALCIUM 9.3 mg/dL (8.5-10.1); CARBON DIOXIDE 23.1 mmol/L (21.0-32.0); CREATININE - SERUM 2.1 mg/dL (0.6-1.3); POTASSIUM - SERUM 4.6 mmol/L (3.5-5.1)
[2020-11-10 14:01] LABS: APTT 25.7 SECONDS (22.8-39.4); INR 0.92 (0.85-1.17); PROTIME 11.4 SECONDS (11.6-15.0)
[2020-11-10 14:02] LABS: ALBUMIN 4.1 g/dL (3.4-5.0); BILIRUBIN - TOTAL 0.35 mg/dL (0.2-1.3); PROTEIN - SERUM 8.3 g/dL (6.4-8.2)
[2020-11-10] MEDS ORDERED: ZANAFLEX4 MG PO (14:39)
[2020-11-10] MEDS ORDERED: MEDROL DOSE PACK4 MG PO (14:39)
[2020-11-10 14:56] VITALS: BP 110/78
== END 2020-11-10 15:05 | disposition home or self-care (01) ==
LOC: D.ER 12:21
PROVIDERS: Family Medicine
DX: M54.5 Low back pain (principal); I10 Essential (primary) hypertension; Z95.5 Presence of coronary angioplasty implant and graft; D64.9 Anemia, unspecified; N18.9 Chronic kidney disease, unspecified